=== PATIENT | male | born 1995 | race Caucasian/White ===

== ENCOUNTER 2020-01-07 05:11 | Day surgery (SDC) | payer OTHER ==
[2020-01-07] VITALS (10 sets, daily range): BP systolic 101–121; BP diastolic 49–65
[~2020-01-07] VITALS: Ht 185.4 cm; Wt 79.4 kg
[2020-01-07] MEDS ORDERED: LR 1000ml ONE (05:12)
[2020-01-07] MEDS ORDERED: NS Irrig 2000ml IRRIG ONE (05:12)
[2020-01-07] MEDS ORDERED: oxyCONTIN 20mg tab ORAL ONE (06:00)
[2020-01-07] MEDS ORDERED: ceFAZolin 1gm IVPB IVPB ONE ×2 (06:00)
[2020-01-07] MEDS ORDERED: celeBREX 200mg Cap **SURGERY PATIENTS ONLY ORAL ONE (06:00)
[2020-01-07] MEDS ORDERED: fentaNYL 100 mcg/2 mL IV ONE (07:01)
[2020-01-07] MEDS ORDERED: Ketorolac 30mg Inj ONE ×2 (07:02→07:15)
[2020-01-07] MEDS ORDERED: Propofol 200mg/20ml IV ONE (07:02)
[2020-01-07] MEDS ORDERED: Lidocaine 1% MPF 10mg/ml 5ml ONE (07:02)
[2020-01-07] MEDS ORDERED: Midazolam 2mg/2ml Inj ONE (07:02)
[2020-01-07] MEDS ORDERED: Morphine Sulfate PF 10 ML ONE (07:15)
[2020-01-07] MEDS ORDERED: Kenalog-40 1ml Vial ONE (07:15)
[2020-01-07] MEDS ORDERED: Lidocaine 1% 10mg/ml/Epi 0.005mg/ml 30ml vial INJ ONE (07:16)
[2020-01-07] MEDS ORDERED: Bupivacaine 0.25% Inj 30ml INJ ONE (07:16)
--- NOTE | 2020-01-07 07:53 | Pre-Procedure Note/Attestation ---
Pre-Procedure Note/Attestation Complete Prior to Procedure Planned Procedure: right Procedure Narrative: knee diagnostic, possible lateral menisectomy Indications for Procedure Pre-Operative Diagnosis: right knee meniscus tear Attestation I attest that I discussed the nature of the procedure; its benefits; risks and complications; and alternatives (and the risks and benefits of such alternatives ), prior to the procedure, with the patient (or the patient's legal rental representative). I attest that, if there was a reasonable possibility of needing a blood transfusion, the patient (or the patient's legal rental representative) was given the [facility] standardized written summary, pursuant to the Arash Kevin Blood Safety Act ([place] Health and Safety Code # 1645, as amended). I attest that I re-evaluated the patient just prior to the surgery and that there has been no change in the patient's H&P, except as documented below: Morro Gale MD January 07, 2020 07:53
--- NOTE | 2020-01-07 07:53 | Operative Note - PDOC ---
Operative Note Operative Note Pre-op Diagnosis: right knee meniscus tear Procedure: see op report Post-op Diagnosis: same as pre-op plus Operative Findings: consistent w/pre-op dx studies Anesthesia: MAC Specimen: none Complications: none Condition: stable Estimated Blood Loss: none Implant(s) used?: No Morro Gale MD January 07, 2020 07:53
[2020-01-07] MEDS ORDERED: D5 1/2NS 1,000 ML IV SCH (08:00)
[2020-01-07] MEDS ORDERED: Tylenol #3 tab (300mg/30mg) ORAL PRN (08:00)
[2020-01-07] MEDS ORDERED: HYDROmorphone 1mg/ml Carpuject SUBQ PRN (08:00)
[2020-01-07] MEDS ORDERED: HYDROcodone/Acetamin 5/325 tab ORAL PRN (08:00)
[2020-01-07] MEDS ORDERED: LR 1000ml 1,000 ML IVLG SCH (08:28)
--- NOTE | 2020-01-07 08:28 | Anethesia Preoperative Eval ---
Anesthesia Pre-op PMH/ROS General Date of Evaluation: January 07, 2020 Time of Evaluation: 07:10 Anesthesiologist: Violette ASA Score: ASA 2 Mallampati Score Class I : Soft palate, uvula, fauces, pillars visible Class II: Soft palate, uvula, fauces visible Class III: Soft palate, base of uvula visible Class IV: Only hard plate visible Mallampati Classification: Class II Surgeon: Baljinder Diagnosis: R knee pain Surgical Procedure: R knee scope Anesthesia History: none Family History: no anesthesia problems Allergies: Coded Allergies: No Known Allergies (Unverified , 01/06/20) Medications: see eMAR Patient NPO?: Yes Past Medical History Cardiovascular: Denies: HTN, CAD, CT, valve dz, arrhythmia, other Pulmonary: Denies: asthma, COPD, ODETTE, other Gastrointestinal/Genitourinary: Reports: GERD - mild; Denies: CRI, ESRD, other Neurologic/Psychiatric: Denies: dementia, CVA, depression/anxiety, TIA, other Endocrine: Denies: DM, hypothyroidism, steroids, other HEENT: Denies: cataract (L), cataract (R), glaucoma, [place] (L), [place] (R), other Hematology/Immune: Denies: anemia, DVT, bleeding disorder, other Musculoskeletal/Integumentary: Denies: OA, RA, DJD, DDD, edema, other PMH Narrative: as above PSxH Narrative: R knee scope Anesthesia Pre-op Phys. Exam Physician Exam Last Vital Signs Date Time Temp Pulse Resp B/P (MAP) Pulse Ox O2 Delivery O2 Flow Rate FiO2 01/07/20 05:41 Room Air 01/07/20 05:37 97.8 59 18 109/56 99 Constitutional: NAD Neurologic: CN 2-12 intact Cardiovascular: RRR, no M/R/G Respiratory: CTA Gastrointestinal: S/NT/ND Airway Exam Mallampati Score: Class II MO: full Neck: flexible ROM: full Teeth: intact Dentures: no upper, no lower Anesthesia Pre-op A/P Labs see chart Risk Assessment & Plan Assessment: ASA 2 Plan: GA with LMA Status Change Before Surgery: No Pre-Antibiotics Drug: Ancef 2gr. Given Within 1 Hr of Incision: Yes Jeremie Oakes MD January 07, 2020 08:28
[2020-01-07] MEDS ORDERED: DiphenhydrAMINE 50mg/ml Inj IVP PRN (08:30)
[2020-01-07] MEDS ORDERED: Metoclopramide 10mg/2ml Inj IVP PRN (08:30)
[2020-01-07] MEDS ORDERED: Meperidine 25mg/0.5ml Inj (FOR RIGORS ONLY) IV PRN (08:30)
[2020-01-07] MEDS ORDERED: Ketorolac 30mg Inj IV PRN (08:30)
--- NOTE | 2020-01-07 09:09 | Immediate Post-Op Evaluation ---
Immediate Post-Op Evalulation Immediate Post-Op Evalulation Procedure: R knee arthroscopy, meniscectomy Date of Evaluation: January 07, 2020 Time of Evaluation: 09:08 IV Fluids: 800 Blood Products: none Estimated Blood Loss: min Urinary Output: none Blood Pressure Systolic: 104 Blood Pressure Diastolic: 56 Pulse Rate: 72 Respiratory Rate: 20 O2 Sat by Pulse Oximetry: 99 Temperature (Fahrenheit): 97.7 Pain Score (1-10): 1 Nausea: No Vomiting: No Complications none Patient Status: reacts, patent, none Hydration Status: adequate Jeremie Oakes MD January 07, 2020 09:09
--- NOTE | 2020-01-07 10:59 | 48 Hour Post Anesthesia Eval ---
Post Anesthesia Evaluation Procedure: R knee arthroscopy, meniscectomy Date of Evaluation: January 07, 2020 Time of Evaluation: 10:58 Blood Pressure Systolic: 108 0: 76 Pulse Rate: 68 Respiratory Rate: 20 Temperature (Fahrenheit): 97.6 O2 Sat by Pulse Oximetry: 98 Airway: patent Nausea: No Vomiting: No Pain Intensity: 1 Hydration Status: adequate Cardiopulmonary Status: stable Mental Status/LOC: patient returned to baseline Follow-up Care/Observations: n/a Post-Anesthesia Complications: none Follow-up care needed: ready to discharge Jeremie Oakes MD January 07, 2020 10:59
--- NOTE | 2020-01-07 20:00 | Operative Note - Dictated ---
DATE OF OPERATION: 01/07/2020 PREOPERATIVE DIAGNOSIS: Status post right knee ACL reconstruction with lateral meniscus tear. POSTOPERATIVE DIAGNOSES: 1. Right knee partial ACL graft tear. 2. Right knee lateral meniscus tear from the middle body. 3. Grade 1 chondral damage, lateral tibial plateau. PROCEDURE: 1. Right knee diagnostic arthroscopy and synovectomy of medial, lateral, and patellofemoral compartments. 2. Partial lateral meniscectomy. 3. Right debridement/repair of partial ACL tear. SURGEON: Morro Gale MD ANESTHESIA: MAC with local. INDICATION FOR PROCEDURE: The patient is a pleasant gentleman who underwent right ACL reconstruction . Subsequent to that, he had continued pain in the right knee. He had a repeat MRI, which showed the ACL graft to be in place, but does have evidence of a meniscus tear. The patient failed conservative treatment and elected to undergo right knee diagnostic with possible revision lateral meniscectomy, possible revision ACL reconstruction. Risks, limitations, expectations, and complications of procedure were discussed in detail. All questions were addressed. DESCRIPTION OF PROCEDURE: After informed consent was obtained, the patient was brought to the operating room. The patient was placed under general anesthesia. Right leg was prepped and draped in sterile manner. Time-out was performed. An inferolateral stab incision was then made. A trocar was introduced into the patellofemoral compartment. Hypertrophic synovial tissue in patellofemoral compartment was making visualization somewhat difficult. Medial gutter was entered and was free of any loose bodies. Medial compartment was entered and there was hypertrophic fat pad and synovial tissue making visualization somewhat difficult of the medial compartment, intercondylar notch, and lateral compartment. Medial working portal was established and excision of the fat pad and synovectomy was performed. Once better visualization was obtained, there appeared to be a partial tear of the distal aspect of the ACL. The graft itself was relatively laxity. This was debrided to prevent any impingement in the notch with extension. At this point, the medial compartment was entered. The meniscus was probed and noted to be intact. No chondral damage. The ACL graft was again assessed now that the ligamentum mucosum/cyclops lesion/partial tear was debrided and as mentioned, more than 75% of the graft was intact with only a small tear along the tibial insertion. At this point, the lateral compartment was entered. There was a complex tear of the lateral meniscus with a horizontal pattern with oblique extension to the anterior body as well as posterior horn. Gentle partial lateral meniscectomy was performed down to a stable rim of tissue. Along the popliteal hiatus, there were flaps that were attached to the posterior horn of the lateral meniscus. It was felt that these flaps were providing stability of the meniscus. Further removing any additional meniscus would necessitate a significant meniscectomy extending to the posterior horn as well as body. Therefore, it was felt that an adequate meniscectomy was completed and additional removal of the meniscus would instability necessitating larger resection. At this point, I noted grade 1 chondral damage of lateral tibial plateau. No gross chondral flaps. At this point, the instrument was placed in the patellofemoral compartment. A synovectomy was completed in the patellofemoral compartment to allow visualization of the no chondral damage. At that point, the instrument was removed. Portal sites were closed using 3-0 Monocryl sutures. Steri-Strips and a sterile dressing were applied. The patient was awoken and taken to recovery room with stable vital signs. ESTIMATED BLOOD LOSS: None. COMPLICATIONS: None. SPECIMENS: None. IMPLANTS: None. Morro Gale M.D. DR: MARCELO JOB#: [id number] CC:
== END 2020-01-07 11:50 | disposition home or self-care (01) ==
LOC: SUR 05:11
DX: S83.281A Other tear of lateral meniscus, current injury, right knee, initial encounter (principal); S83.511A Sprain of anterior cruciate ligament of right knee, initial encounter; K21.9 Gastro-esophageal reflux disease without esophagitis; X58.XXXA Exposure to other specified factors, initial encounter; Y92.9 Unspecified place or not applicable
CPT/HCPCS: 29876; 29881; 29999; 94003; J0690; J1885; J2250; J2405; J3010; J3301; J3490; J7120; 94150